=== PATIENT | female | born 1975 | race Caucasian/White ===

== ENCOUNTER 2016-06-29 00:39 | Emergency (ER) | payer BC ==
[2016-06-29] MEDS ORDERED: LORAZEPAM 2 MG/ML VIAL IV ONE (01:10)
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
[2016-06-29] MEDS ORDERED: 0.9 % SODIUM CHLORIDE 1000ML 1,000 ML IV SCH (01:15)
[2016-06-29 01:27] LABS: HEMATOCRIT 44.9 % (35.0-47.0); HEMOGLOBIN 14.7 gm/dl (11.6-16.0); MEAN CELL VOLUME 92.6 fl (81-97); MEAN CORPUSCULAR HEMOGLOBIN 30.3 pg (27-33); MEAN CORPUSCULAR HGB CONC 32.7 g/dl (32-36); MEAN PLATELET VOLUME 10.5 fl (7.4-10.4); PLATELET COUNT 272 K/uL (130-400); RED BLOOD COUNT 4.85 M/uL (3.80-5.40); RED CELL DISTRIBUTION WIDTH 13.4 % (11.5-14.5)
[2016-06-29 01:37] LABS: INR 1.29; PROTHROMBIN TIME (PATIENT) 14.6 SECONDS (9.5-12.1)
[2016-06-29 02:18] LABS: URINE APPEARANCE CLEAR; URINE BILIRUBIN NEGATIVE (NEGATIVE); URINE BLOOD TRACE-I (NEGATIVE); URINE COLOR YELLOW; URINE GLUCOSE (UA) NEGATIVE (NEGATIVE); URINE KETONE NEGATIVE (NEGATIVE); URINE LEUKOCYTE ESTERASE NEGATIVE (NEGATIVE); URINE NITRITE NEGATIVE (NEGATIVE); URINE PROTEIN NEGATIVE (NEGATIVE); URINE UROBILINOGEN 0.2 E.U./dL (0.20 - 1.00)
[2016-06-29 02:21] LABS: ALB/GLOB RATIO 1.8 (1.1-1.8); ALBUMIN 4.2 gm/dL (3.5-5.0); ALKALINE PHOSPHATASE 71 U/L (38-126); ALT/SGPT 35 U/L (9-52); ANION GAP 15.9 (7-16); AST/SGOT 23 U/L (14-36); BILIRUBIN,TOTAL 0.39 mg/dL (0.2-1.3); BLOOD UREA NITROGEN 11 mg/dL (7-17); CARBON DIOXIDE 23.1 mmol/L (22-30); CREATININE 0.6 mg/dL (0.52-1.04); EST GLOMERULAR FILTRATION RATE > 60 ml/min; GLUCOSE,RANDOM 99 mg/dL (70-110); LIPASE 61 U/L (23-300); TOTAL PROTEIN 6.6 gm/dL (6.3-8.2)
[2016-06-29 02:21] LABS: HCG,QUALITATIVE URINE NEGATIVE (NEGATIVE)
[2016-06-29 02:28] LABS: URINE WBC 0 - 2 (0-2/hpf)
--- NOTE | 2016-07-04 16:57 | CT SCAN REPORT ---
EXAM: CT SCAN ABDOMEN/PELVIS WO CONTRAST HISTORY: ACUTE GENERALIZED CRAMPING ABDOMINAL PAIN. HISTORY OF PRIOR CHOLECYSTECTOMY, KIDNEY STONES. TECHNIQUE: Contiguous axial images from the lung bases through the symphysis pubis were obtained without IV contrast. COMPARISON: Abdomen and pelvis CT, 02/15/2016. FINDINGS: Lung bases are clear. There is a tiny hiatal hernia. Evaluation of the solid abdominal visceral organs are compromised due to lack of IV contrast. The liver, spleen, kidneys, adrenals, and pancreas are unremarkable. Gallbladder is absent. Visualized loops of small and large bowel are of normal caliber with no bowel wall thickening. Small amount of fecal material throughout the colon. Normal appendix. The uterus is present. No free intraperitoneal fluid or adenopathy. No pelvic mass. No lytic or blastic osseous lesion. IMPRESSION: 1. NO ACUTE PROCESS OF THE ABDOMEN OR PELVIS. 2. SMALL HIATAL HERNIA. JOB NUMBER: [id number] [facility]
== END 2016-06-29 03:42 | disposition home or self-care (01) ==
LOC: ER 00:39
DX: S30.1XXA Contusion of abdominal wall, initial encounter (principal); R19.7 Diarrhea, unspecified; R10.84 Generalized abdominal pain; W51.XXXA Accidental striking against or bumped into by another person, initial encounter
CPT/HCPCS: 99284 ×2; 96374; 96361; 83690; 85610; 80053; 81001; 81025; 85027; 74176; J2060; J7030

== ENCOUNTER 2016-07-02 07:29 | Emergency (ER) | payer BC ==
--- NOTE | 2016-07-02 07:58 | Emergency Department Record ---
History of Present Illness - General Chief Complaint: Abdominal Pain Stated Complaint: ABD PAIN Time Seen by Provider: 07/02/16 07:57 Source: Patient, RN notes reviewed Mode of Arrival: Ambulatory - History of Present Illness Initial Comments: abdominal pain right upper quad ,last DVT 5 years ago and she was seen 2 days ago here and had CT scan of abd and neg and using lovenox shots and last one yesterday for an IV she had 2 days ago. She has had 2 BM's since she got here and feeling some better. Onset/Timin -: Days(s) Location: RUQ, RLQ Severity: Mild Quality: Cramping Consistency: Constant Improves With: Nothing Worsens With: Nothing Context: Recent antibiotic use Associated Symptoms: Denies other symptoms - Related Data Home Medications Medication Instructions Recorded Confirmed Last Taken Warfarin Sodium [Coumadin] 7.5 mg PO DAILY 01/11/14 07/02/16 02/14/16 Cyclobenzaprine HCl [Flexeril] 10 mg PO QHS 03/11/15 07/02/16 02/14/16 Hydrocodone/Acetaminophen [[place] 1 tab PO Q8H PRN 03/11/15 07/02/16 02/08/16 5mg/325mg] Alprazolam [Alprazolam] 0.25 mg PO BID PRN 07/02/16 07/02/16 Unknown Cephalexin [Cephalexin] 500 mg PO BID 07/02/16 07/02/16 Unknown Enoxaparin Sodium [Lovenox] 100 mg SC Q12H 07/02/16 07/02/16 07/01/16 Previous Rx's Medication Instructions Recorded Omeprazole 20 mg PO DAILY #30 tab. 07/02/16 Allergies Allergy/AdvReac Type Severity Reaction Status Date / Time iodine Allergy DIFFICULTY Verified 02/15/16 16:56 BREATHING Travel Screening - Travel/Exposure Within Last 30 Days Have you traveled within the last 30 days?: No Review of Systems Reviewed: No additional complaints except as noted below Constitutional: Reports: As per HPI. Denies: Chills, Fever, Malaise, Night sweats, Weakness, Weight change Eyes: Reports: As per HPI. Denies: Eye discharge, Eye pain, Photophobia, Vision change ENT: Reports: As per HPI. Denies: Congestion, Dental pain, Ear pain, Epistaxis , Hearing loss, Throat pain Respiratory: Reports: As per HPI. Denies: Cough, Dyspnea, Hemoptysis, Stridor, Wheezes Cardiovascular: Reports: As per HPI. Denies: Arrhythmia, Chest pain, Dyspnea on exertion, Edema, Murmurs, Orthopnea, Palpitations, Paroxysmal nocturnal dyspnea, Rheumatic Fever, Syncope Endocrine: Reports: As per HPI. Denies: Fatigue, Heat or cold intolerance, Polydipsia, Polyuria Gastrointestinal: Reports: As per HPI, Abdominal pain, Nausea. Denies: Constipation, Diarrhea, Hematemesis, Hematochezia, Melena, Vomiting Genitourinary: Reports: As per HPI. Denies: Abnormal menses, Discharge, Dyspareunia, Dysuria, Frequency, Hematuria, Incontinence, Retention, Urgency Musculoskeletal: Reports: As per HPI. Denies: Arthralgia, Back pain, Gout, Joint swelling, Myalgia, Neck pain Skin: Reports: As per HPI. Denies: Bruising, Change in color, Change in hair/ nails, Lesions, Pruritus, Rash Neurological: Reports: As per HPI. Denies: Abnormal gait, Confusion, Headache, Numbness, Paresthesias, Seizure, Tingling, Tremors, Vertigo, Weakness Psychiatric: Reports: As per HPI. Denies: Anxiety, Auditory hallucinations, Depression, Homicidal thoughts, Suicidal thoughts, Visual hallucinations Hematological/Lymphatic: Reports: As per HPI. Denies: Anemia, Blood Clots, Easy bleeding, Easy bruising, Swollen glands Past Medical History - SOCIAL HISTORY Smoking Status: Light tobacco smoker (<10/day) Alcohol Use: None Drug Use: None - RESPIRATORY Hx Respiratory Disorders: No - CARDIOVASCULAR Hx Cardio Disorders: No - NEURO Hx Neuro Disorders: No - GI Hx GI Disorders: No - Hx Genitourinary Disorders: Yes Hx Kidney Stones: Yes - ENDOCRINE Hx Endocrine Disorders: No - MUSCULOSKELETAL Hx Musculoskeletal Disorders: No - PSYCH Hx Psych Problems: No - HEMATOLOGY/ONCOLOGY Hx Hematology/Oncology Disorders: Yes Hx Blood Disorders: Yes (protein s deficiency) Hx Clotting Problems: Yes Family Medical History Any Significant Family History?: Yes Hx Heart Disease: Grandparents Physical Exam - General General Appearance: Alert, Oriented x3, Cooperative, No acute distress - Head Head exam: Normal inspection - Eye Eye exam: Normal appearance, PERRL Pupils: Normal accommodation - ENT ENT exam: Normal exam, Mucous membranes moist, Normal external ear exam, Normal orophraynx, TM's normal bilaterally Ear exam: Normal external inspection. negative: External canal tenderness Nasal Exam: Normal inspection. negative: Discharge, Sinus tenderness Mouth exam: Normal external inspection, Tongue normal Teeth exam: Normal inspection. negative: Dental caries Throat exam: Normal inspection. negative: Tonsillar erythema, Tonsillar exudate - Neck Neck exam: Normal inspection, Full ROM. negative: Tenderness - Respiratory Respiratory exam: Normal lung sounds bilaterally. negative: Respiratory distress - Cardiovascular Cardiovascular Exam: Regular rate, Normal rhythm, Normal heart sounds - GI/Abdominal GI/Abdominal exam: Soft, Normal bowel sounds, Tenderness (right upper quad pain and epigastric pain) - Rectal Rectal exam: Deferred - exam: Deferred - Extremities Extremities exam: Normal inspection, Full ROM, Normal capillary refill. negative: Tenderness - Back Back exam: Reports: Normal inspection, Full ROM. Denies: Muscle spasm, Rash noted, Tenderness - Neurological Neurological exam: Alert, Normal gait, Oriented X3, Reflexes normal - Psychiatric Psychiatric exam: Normal affect, Normal mood - Skin Skin exam: Dry, Intact, Normal color, Warm Course Vital Signs 07/02/16 07:41 Temperature 98.0 F Pulse Rate 100 H Respiratory 12 Rate Blood Pressure 125/95 Pulse Ox 97 feeling better Medical Decision Making - Data Complexity MDM Data: Labs Ordered and/or Reviewed (reviewed) - Lab Data Result diagrams: 07/02/16 09:33 07/02/16 09:58 Disposition Clinical Impression: Abdominal pain Qualifiers: Abdominal location: right upper quadrant Qualified Code(s): R10.11 - Right upper quadrant pain Gastritis Qualifiers: Gastritis type: unspecified gastritis Chronicity: acute Gastritis bleeding: without bleeding Qualified Code(s): K29.00 - Acute gastritis without bleeding Disposition: Home, Self-Care Condition: (1) Good Instructions: Gastritis (ED) Additional Instructions: mylant one tablespoon after meals and bedtime. follow up with family in 3 days Prescriptions: Omeprazole 20 mg PO DAILY #30 tab.dr Forms: Patient Portal Access Time of Disposition: 10:06
[2016-07-02] MEDS: SCOP PO ONE ×2 (08:50)
[2016-07-02] MEDS: ATROPINE PO ONE ×2 (08:50)
[2016-07-02] MEDS: [UNRECOGNIZED DRUG - OTHER] PO ONE ×2 (08:50)
[2016-07-02] MEDS: HYOSCY PO ONE ×2 (08:50)
[2016-07-02] MEDS: MAGNESIUM HYDROXIDE PO ONE ×2 (08:50)
[2016-07-02] MEDS: PANTOPRAZOLE SODIUM 40 MG TABLET PO ONE (08:51)
[2016-07-02 08:53] LABS: URINE APPEARANCE CLEAR; URINE BILIRUBIN NEGATIVE (NEGATIVE); URINE BLOOD MODERATE (NEGATIVE); URINE COLOR YELLOW; URINE GLUCOSE (UA) NEGATIVE (NEGATIVE); URINE KETONE NEGATIVE (NEGATIVE); URINE LEUKOCYTE ESTERASE NEGATIVE (NEGATIVE); URINE NITRITE NEGATIVE (NEGATIVE); URINE PROTEIN NEGATIVE (NEGATIVE); URINE UROBILINOGEN 0.2 E.U./dL (0.20 - 1.00)
[2016-07-02 09:07] LABS: URINE RBC 0 - 2 (NONE SEEN); URINE WBC NONE SEEN (0-2/hpf)
[2016-07-02 09:38] LABS: BASO % 0.1 % (0-6); EOS % 0.4 % (0-6); GRAN % 78.7 % (47-80); HEMATOCRIT 41.4 % (35.0-47.0); HEMOGLOBIN 13.2 gm/dl (11.6-16.0); LYMPH % 13.9 % (16-45); MEAN CELL VOLUME 91.6 fl (81-97); MEAN CORPUSCULAR HEMOGLOBIN 29.2 pg (27-33); MEAN CORPUSCULAR HGB CONC 31.9 g/dl (32-36); MEAN PLATELET VOLUME 10.5 fl (7.4-10.4); MONO % 6.9 % (0-9); PLATELET COUNT 296 K/uL (130-400); RED BLOOD COUNT 4.52 M/uL (3.80-5.40); RED CELL DISTRIBUTION WIDTH 13.2 % (11.5-14.5); WHITE BLOOD COUNT W/O DIFF 7.6 K/uL (4.2-12.2)
[2016-07-02 09:52] LABS: ALBUMIN 4.4 gm/dL (3.5-5.0); BILIRUBIN,TOTAL 0.32 mg/dL (0.2-1.3); TOTAL PROTEIN 6.9 gm/dL (6.3-8.2)
[2016-07-02 10:13] LABS: BLOOD UREA NITROGEN 7 mg/dL (7-17); CREATININE 0.6 mg/dL (0.52-1.04); EST GLOMERULAR FILTRATION RATE > 60 ml/min; GLUCOSE,RANDOM 98 mg/dL (70-110)
== END 2016-07-02 10:35 | disposition home or self-care (01) ==
LOC: ER 07:29
DX: K29.00 Acute gastritis without bleeding (principal); R10.11 Right upper quadrant pain; Z86.718 Personal history of other venous thrombosis and embolism; Z79.01 Long term (current) use of anticoagulants
CPT/HCPCS: 99283 ×2; 83690; 85025; 80076; 80048; 81001; 81025; J3490